=== PATIENT | female | born 1970 | race Caucasian/White ===

== ENCOUNTER 2019-02-27 19:00 | Inpatient (IN) | payer BC ==
[~2019-02-27] VITALS: Ht 167.6 cm; Wt 50.0 kg
[2019-03-01 08:26] VITALS: BP 98/63
== END 2019-03-01 12:00 | disposition home or self-care (01) | DRG 281 ==
LOC: EDBD 19:00 → ED 19:27 → EDIP 20:25 → 5SO 21:57
PROVIDERS: ADMIT Family Medicine; ATTEND Family Medicine
PROC: 4A023N7 Measurement of Cardiac Sampling and Pressure, Left Heart, Percutaneous Approach (ICD-10-PCS; principal; 2019-02-28)
PROC: B2111ZZ Fluoroscopy of Multiple Coronary Arteries using Low Osmolar Contrast (ICD-10-PCS; 2019-02-28)
PROC: B2151ZZ Fluoroscopy of Left Heart using Low Osmolar Contrast (ICD-10-PCS; 2019-02-28)
DX: I21.4 Non-ST elevation (NSTEMI) myocardial infarction (principal); I51.81 Takotsubo syndrome; N39.0 Urinary tract infection, site not specified; N31.9 Neuromuscular dysfunction of bladder, unspecified; F90.9 Attention-deficit hyperactivity disorder, unspecified type; F17.210 Nicotine dependence, cigarettes, uncomplicated; F41.1 Generalized anxiety disorder; E78.5 Hyperlipidemia, unspecified; I95.9 Hypotension, unspecified; Z88.1 Allergy status to other antibiotic agents; Z88.2 Allergy status to sulfonamides; Z79.02 Long term (current) use of antithrombotics/antiplatelets; Z82.49 Family history of ischemic heart disease and other diseases of the circulatory system; Z87.440 Personal history of urinary (tract) infections; Z98.891 History of uterine scar from previous surgery
CPT/HCPCS: 36415; 93458; 99291; J3490; 80048; 80053; 81003; 83735; 83880; 84443; 84484; 85025; 85520; 85610; 85730; 93005; 93306; 99156; C1769; C1894; G0378; J1644; J2250; J3010; J7030; Q9967